=== PATIENT | male | born 1980 | race African-American/Black ===

== ENCOUNTER 2019-09-04 18:18 | Emergency (ER) | payer OTHER ==
[~2019-09-04] VITALS: Ht 170.2 cm; Wt 79.0 kg
--- NOTE | 2019-09-04 19:58 | REPVR ---
PROCEDURE INFORMATION: Exam: CT Head Without Contrast Exam date and time: 09/04/2019 7:40 PM Age: 38 years old Clinical indication: Injury or trauma; Injury history: Weight to head; Initial encounter; Blunt trauma (contusions or hematomas); Additional info: 65lb weight to head TECHNIQUE: Imaging protocol: Computed tomography of the head without contrast. Radiation optimization: All CT scans at this facility use at least one of these dose optimization techniques: automated exposure control; mA and/or kV adjustment per patient size (includes targeted exams where dose is matched to clinical indication); or iterative reconstruction. COMPARISON: No relevant prior studies available. FINDINGS: Brain: Normal. No hemorrhage. Unremarkable white matter. No mass effect. Ventricles: Normal. No ventriculomegaly. Bones/joints: Unremarkable. No acute fracture. Sinuses: Visualized sinuses are unremarkable. No fluid levels. Mastoid air cells: Visualized mastoid air cells are well aerated. Soft tissues: Large soft tissue contusion/hematoma right anterior parietal bone. IMPRESSION: 1. Large soft tissue contusion/hematoma right anterior parietal bone. No skull fracture. 2. No acute intracranial findings. Electronically signed by: Ronen Falcon On 09/04/2019 19:57:37 PM
--- NOTE | 2019-09-04 20:00 | REPVR ---
PROCEDURE INFORMATION: Exam: CT Cervical Spine Without Contrast Exam date and time: 09/04/2019 7:40 PM Age: 38 years old Clinical indication: Injury or trauma; Injury history: Weight to head; Initial encounter; Blunt trauma; Additional info: 65lb weight to head causing neck pain TECHNIQUE: Imaging protocol: Computed tomography images of the cervical spine without contrast. Radiation optimization: All CT scans at this facility use at least one of these dose optimization techniques: automated exposure control; mA and/or kV adjustment per patient size (includes targeted exams where dose is matched to clinical indication); or iterative reconstruction. COMPARISON: No relevant prior studies available. FINDINGS: Vertebrae: No acute fracture. Normal alignment. C2-C3: No significant disc protrusion. No severe spinal canal stenosis. No significant neural foraminal narrowing. C3-C4: No significant disc protrusion. No severe spinal canal stenosis. No significant neural foraminal narrowing. C4-C5: No significant disc protrusion. No severe spinal canal stenosis. No significant neural foraminal narrowing. C5-C6: No significant disc protrusion. No severe spinal canal stenosis. No significant neural foraminal narrowing. C6-C7: No significant disc protrusion. No severe spinal canal stenosis. No significant neural foraminal narrowing. C7-T1: No significant disc protrusion. No severe spinal canal stenosis. No significant neural foraminal narrowing. Soft tissues: Unremarkable. Lungs: Lung apices are normal. IMPRESSION: No acute findings. Electronically signed by: Ronen Falcon On 09/04/2019 20:00:16 PM
[2019-09-04] MEDS ORDERED: CYCL5TAB PO (20:48)
[2019-09-04 20:55] VITALS: BP 148/81
== END 2019-09-04 20:57 | disposition home or self-care (01) ==
LOC: M ED 18:18
DX: S01.01XA Laceration without foreign body of scalp, initial encounter (principal); W24.0XXA Contact with lifting devices, not elsewhere classified, initial encounter; Y92.39 Other specified sports and athletic area as the place of occurrence of the external cause; Y93.B3 Activity, free weights; Y99.8 Other external cause status